=== PATIENT | male | born 1985 | race Caucasian/White ===

== ENCOUNTER 2018-02-28 11:39 | Emergency (ER) | payer OTHER ==
[~2018-02-28] VITALS: Ht 170.2 cm; Wt 75.0 kg
--- NOTE | 2018-02-28 13:05 | REP ---
Chest two views HISTORY: Trauma Comparison: None The lungs are clear. The heart is normal in size. The pulmonary vasculature is normal in appearance. The bony structure is intact. IMPRESSION: No acute disease. Electronically Signed by Austyn Patterson MD 02/28/2018 12:56 P
[2018-02-28 14:05] VITALS: BP 117/58
[2018-02-28] MEDS ORDERED: IBUPROFEN 800 MG TAB As Ordered ONE (14:08)
[2018-02-28] MEDS ORDERED: IBUPROFEN 800 MG TAB PO ONE (14:15)
== END 2018-02-28 14:29 | disposition home or self-care (01) ==
LOC: EDBD 11:39 → M ED 11:39
DX: S06.0X9A Concussion with loss of consciousness of unspecified duration, initial encounter (principal); S20.219A Contusion of unspecified front wall of thorax, initial encounter; V47.0XXA Car driver injured in collision with fixed or stationary object in nontraffic accident, initial encounter

== ENCOUNTER 2019-12-21 18:31 | Emergency (ER) | payer OTHER ==
[~2019-12-21] VITALS: Ht 170.2 cm; Wt 69.4 kg
[2019-12-21] MEDS ORDERED: DERMABOND TOPICAL SKIN ADHESIVE TOP ONE (19:45)
[2019-12-21 19:59] VITALS: BP 114/66
== END 2019-12-21 20:16 | disposition home or self-care (01) ==
LOC: M ED 18:31
DX: S91.201A Unspecified open wound of right great toe with damage to nail, initial encounter (principal); X58.XXXA Exposure to other specified factors, initial encounter; Y92.89 Other specified places as the place of occurrence of the external cause; Y99.0 Civilian activity done for income or pay

== ENCOUNTER 2019-12-23 10:08 | Emergency (ER) | payer OTHER ==
[~2019-12-23] VITALS: Ht 170.2 cm; Wt 70.0 kg
--- NOTE | 2019-12-23 11:11 | REP ---
INDICATION: r great toe, dropped a matress on it. COMPARISON: None. TECHNIQUE: Four views FINDINGS: There is no visible or displaced fracture, avulsion or radiopaque foreign body. Subtle radiodensity dorsal aspect of the distal phalanx soft tissues represents the distal edge of the toenail. Phalanges, IP, MCP joints and adjacent bones and joints were all intact without fracture. IMPRESSION: No evidence of fracture great toe. <Electronically signed by Austin Elaine > 12/23/19 [id number]
[2019-12-23] MEDS ORDERED: BACT800T5 PO (11:24)
[2019-12-23 11:46] VITALS: BP 122/66
== END 2019-12-23 12:06 | disposition home or self-care (01) ==
LOC: M ED 10:08
DX: Z04.89 Encounter for examination and observation for other specified reasons (principal)

== ENCOUNTER 2020-05-29 12:29 | Emergency (ER) | payer OTHER ==
[~2020-05-29] VITALS: Ht 170.2 cm; Wt 72.2 kg
[~2020-05-29 12:29] MED LIST: BACT800T5 PO
--- NOTE | 2020-05-29 15:07 | REP ---
INDICATION: headache, blurred vision. COMPARISON: None. TECHNIQUE: Axial CT with multiplanar reconstructions. FINDINGS: No acute bleed or acute large vessel territorial infarct. Ventricles, cisterns and sulci are within normal limits. No mass effect or midline shift. No abnormal fluid collections. Paranasal sinuses and mastoid air cells are clear IMPRESSION: No acute findings. <Electronically signed by Kel Wang > 05/29/20 [id number]
[2020-05-29 17:03] LABS: BASO % 0.6 % (0.0-1.0); EOS # 0.1 10^3/uL (0.0-0.5); HEMATOCRIT 41.7 % (42.0-52.0); HEMOGLOBIN 14.6 g/dl (13.5-17.5); LYMPH % 31.3 % (24.0-44.0); MEAN CORPUSCULAR HEMOGLOBIN 31.1 pg (27.0-33.0); MEAN CORPUSCULAR VOLUME 88.9 fl (80.0-96.0); MONO # 0.5 10^3/uL (0.0-0.8); NEUTROPHILS # 3.7 10^3/uL (1.5-8.5); NEUTROPHILS % 57.8 % (36.0-66.0); PLATELET COUNT, AUTOMATED 257 10^3/uL (150-450); RED BLOOD COUNT 4.69 10^6/uL (4.30-6.10); WHITE BLOOD COUNT 6.5 10^3/uL (4.0-10.0)
[2020-05-29 17:16] LABS: INR 0.94; PROTHROMBIN TIME 12.8 SECONDS (12.5-14.3)
[2020-05-29 17:17] LABS: PARTIAL THROMBOPLASTIN TIME 26.4 SECONDS (24.2-38.5)
[2020-05-29 17:26] LABS: ERYTHROCYTE SEDIMENTATION RATE 5 mm/hr (0-15)
[2020-05-29 17:27] LABS: ALBUMIN 4.4 GM/DL (3.2-5.2); ALT/SGPT 28 U/L (12-78); BILIRUBIN,DIRECT 0.2 MG/DL (0.0-0.2); BILIRUBIN,TOTAL 0.8 MG/DL (0.2-1.0); C REACTIVE PROTEIN QUANTITATIV < 0.30 MG/DL (0.00-0.30); CK-MB VALUE MASS < 1.0 NG/ML (<3.6); CPK CREATINE PHOSPHOKINASE 851 U/L (39-308); MAGNESIUM LEVEL 2.5 MG/DL (1.8-2.4); MB/CK RELATIVE INDEX 0.12 (< OR =4); TOTAL PROTEIN 7.5 GM/DL (6.4-8.2); TROPONIN I < 0.02 NG/ML (< 0.10)
[2020-05-29 17:30] LABS: D-DIMER QUANT < 270 ng/ml (<500)
[2020-05-29 18:24] VITALS: BP 138/74
== END 2020-05-29 18:26 | disposition home or self-care (01) ==
LOC: M ED 12:29
DX: H53.9 Unspecified visual disturbance (principal); Z88.0 Allergy status to penicillin

== ENCOUNTER 2021-05-03 09:18 | Emergency (ER) | payer OTHER ==
[~2021-05-03] VITALS: Ht 170.2 cm; Wt 72.2 kg
[2021-05-03] MEDS ORDERED: ONDANSETRON 4MG/2ML VIAL IV ONE (09:35)
[2021-05-03] MEDS ORDERED: DICYCLOMINE 10 MG CAP PO ONE (09:35)
[2021-05-03 10:00] LABS: BASO % 0.7 % (0.0-1.0); EOS # 0.1 10^3/uL (0.0-0.5); HEMATOCRIT 42.9 % (42.0-52.0); HEMOGLOBIN 14.8 g/dl (13.5-17.5); LYMPH # 1.8 10^3/uL (1.5-5.0); LYMPH % 38.5 % (24.0-44.0); MEAN CORPUSCULAR HEMOGLOBIN 29.8 pg (27.0-33.0); MEAN CORPUSCULAR HGB CONC 34.5 g/dl (32.0-36.5); MEAN CORPUSCULAR VOLUME 86.3 fl (80.0-96.0); MONO # 0.4 10^3/uL (0.0-0.8); MONO % 8.7 % (2.0-8.0); NEUTROPHILS # 2.3 10^3/uL (1.5-8.5); NEUTROPHILS % 48.9 % (36.0-66.0); PLATELET COUNT, AUTOMATED 225 10^3/uL (150-450); RED BLOOD COUNT 4.97 10^6/uL (4.30-6.10); WHITE BLOOD COUNT 4.6 10^3/uL (4.0-10.0)
[2021-05-03 10:44] LABS: ALBUMIN 4.4 GM/DL (3.2-5.2); ALT/SGPT 42 U/L (12-78); BILIRUBIN,DIRECT 0.1 MG/DL (0.0-0.2); BILIRUBIN,TOTAL 0.7 MG/DL (0.2-1.0); BLOOD UREA NITROGEN 22 MG/DL (7-18); CALCIUM LEVEL 9.3 MG/DL (8.5-10.1); CARBON DIOXIDE LEVEL 28 MEQ/L (21-32); CHLORIDE LEVEL 109 MEQ/L (98-107); CREATININE FOR GFR 0.89 MG/DL (0.70-1.30); GLOMERULAR FILTRATION RATE > 60.0 (>60); GLUCOSE, FASTING 79 MG/DL (70-100); LIPASE 123 U/L (73-393); POTASSIUM SERUM 4.4 MEQ/L (3.5-5.1); SODIUM LEVEL 139 MEQ/L (136-145); TOTAL PROTEIN 7.5 GM/DL (6.4-8.2)
[2021-05-03] MEDS ORDERED: DICY10CA13 PO (11:54)
[2021-05-03] MEDS ORDERED: ONDA4TAB6 PO (11:54)
[2021-05-03 12:22] VITALS: BP 107/65
== END 2021-05-03 12:23 | disposition home or self-care (01) ==
LOC: M ED 09:18
DX: R10.9 Unspecified abdominal pain (principal); R11.0 Nausea; Z88.0 Allergy status to penicillin
CPT/HCPCS: 80048; 80076; 83690; 85025; 87428; 96374; 99284; J2405